=== PATIENT | female | born 1970 | race Caucasian/White ===

== ENCOUNTER 2016-09-04 17:10 | Emergency (ER) | payer MEDICAID, OTHER ==
[2016-09-04 17:48] VITALS: BP 148/89
--- NOTE | 2016-09-04 18:11 | ED ---
Throat Pain/Nasal Congestion - HPI Summary HPI Summary: 46 F presents with lesions around right eye and blurry vision starting today. She does not wear contacts. She has had sinus pressure and headache for 4 weeks now. She has tried different antibiotics and they do not seem to help. She also has had a cough for two weeks. She denies any fever, chest pain, or SOB. She has been using intranasal steroid and saline rinses without much relief. She states she had a coughing fit last night. She denies any double vision or loss of vision. She states the headaches she has been having are in the front of her head and are similar to the headaches she has had in the past. She states she gets frequent sinus infections. - History of Current Complaint Chief Complaint: EDEyeProblem Time Seen by Provider: 09/04/16 17:44 - Allergies/Home Medications Allergies/Adverse Reactions: Allergies Allergy/AdvReac Type Severity Reaction Status Date / Time Gluten Meal Allergy GI Upset Verified 05/10/14 08:13 PMH/Surg Hx/FS Hx/Imm Hx Endocrine/Hematology History: Denies: Hx Diabetes Cardiovascular History: Denies: Hx Hypertension, Hx Pacemaker/ICD History: Denies: Hx Dialysis, Hx Renal Disease Sensory History: Reports: Hx Contacts or Glasses Denies: Hx Hearing Aid Opthamlomology History: Reports: Hx Contacts or Glasses Psychiatric History: Denies: Hx Panic Disorder - Surgical History Surgery Procedure, Year, and Place: LYPOMA RT LEG Infectious Disease History: No Infectious Disease History: Denies: Traveled Outside the [place] in Last 30 Days - Family History Known Family History: Negative: Cardiac Disease - Social History Alcohol Use: None Substance Use Type: Reports: None Smoking Status (MU): Unknown if Ever Smoked Review of Systems Negative: Fever Positive: Nasal Discharge, Other - sinus pressure. Negative: Sore Throat, Ear Ache Negative: Chest Pain Positive: Cough. Negative: Shortness Of Breath Positive: Headache All Other Systems Reviewed And Are Negative: Yes Physical Exam Triage Information Reviewed: Yes Vital Signs On Initial Exam: Initial Vitals Temp Pulse Resp BP Pulse Ox 99.3 F 80 16 148/89 99 09/04/16 17:28 09/04/16 17:28 09/04/16 17:28 09/04/16 17:28 09/04/16 17:28 Vital Signs Reviewed: Yes Appearance: Positive: Well-Appearing Skin: Positive: Warm, Dry, Other - nonraised area present near right eye that does not appear to be vescicular and appears most like an area of ecchymosis Head/Face: Positive: Normal Head/Face Inspection Eyes: Positive: Normal, EOMI, MICHELLE, Conjunctiva Clear ENT: Positive: Normal ENT inspection, Pharyngeal erythema, TMs normal Neck: Positive: Supple, Nontender Respiratory/Lung Sounds: Positive: Clear to Auscultation, Breath Sounds Present Cardiovascular: Positive: Normal, RRR Neurological: Positive: Sensory/Motor Intact, Alert, Oriented to Person Place, Time, CN Intact II-III Procedures - Eye Procedure Alcaine Drops Administered: Yes - no foreign body or ulcer on king lamp exam Diagnostics - Vital Signs Vital Signs Temp Pulse Resp BP Pulse Ox 09/04/16 17:28 99.3 F 80 16 148/89 99 - Laboratory Lab Statement: Any lab studies that have been ordered have been reviewed, and results considered in the medical decision making process. EENT Course/Dx - Course Course Of Treatment: 46 F presents with lesion near right eye and blurry vision today. states has had sinus infection for 4 weeks now and has been treated with antibiotics and flonase without relief, sinus tenderness on exam, lungs CTA , discussed xray but patient states would just like inhaler and something for cough, discussed adding antibiotic but patient states she has already been on them before and they do not help, would like referral to ENT due to frequent sinus infections, had dr grajeda see patient to evaluate for shingles, dr grajeda agrees appears to be ecchymotic lesion rather than vesciular, showed what to watch for shingles and patient understands and will return immediately, king lamp exam performed and was normal, patient visual acuity was normal, neuro exam normal and headaches same as normal so do not see need to image, patient agrees with plan - Differential Diagnoses Differential Diagnoses: Contusion, Sinusitis, URI/Bronchitis, Other - shingles, pneumonia - Diagnoses Provider Diagnoses: Sinusitis, Bronchitis Discharge - Discharge Plan Condition: Good Disposition: HOME Prescriptions: Albuterol HFA INHALER* [Ventolin HFA Inhaler*] 1 - 2 puff INH Q4H PRN #1 mdi PRN Reason: Shortness Of Breath Benzonatate CAP* [Tessalon CAP*] 100 mg PO TID #15 cap Patient Education Materials: Sinusitis (ED) Referrals: Amber Hartley MD [Primary Care Provider] - Chacorta Santos MD [Medical Doctor] - Additional Instructions: Continue intranasal steroids and saline rinses Use tessalon up to three times a day for cough use inhaler as needed every 4 hours for cough or shortness of breath Follow up with primary within 5 days, try to get into ENT if symptoms due not improve Return to ED if develop any vesicle lesions or any new or worsening symptoms
--- NOTE | 2016-11-08 11:21 | ED ---
I, Caleb Schmitz, scribed for Edison Lemus MD on 09/04/16 at 1803 . Progress - Progress Note Progress Note: I was asked to see the patient by SAI Rand. Patient has bruising in the right lower eyelid. It does not have any vesicular lesions, however she was advised to follow up with PCP and return to the ED if she develops vesicular lesions to rule out shingles. It appears that she has acute sinusitis, which will be taken care by Liza. Course/Dx - Diagnoses Provider Diagnoses: Sinusitis, Bronchitis The documentation as recorded by the vandanaibNadir montiel Billy accurately reflects the service I personally performed and the decisions made by me, Edison Lemus MD.
== END 2016-09-04 18:28 | disposition home or self-care (01) ==
LOC: ED 17:10
DX: J32.9 Chronic sinusitis, unspecified (principal); J40 Bronchitis, not specified as acute or chronic
CPT/HCPCS: 99282